=== PATIENT | male | born 2000 | race African-American/Black ===

== ENCOUNTER 2023-07-29 08:41 | Emergency (ER) | payer BC, OTHER, SELFPAY ==
[2023-07-29 08:59] VITALS: BP 127/68; PULSE 78; RESP 18; TEMP 36.5; O2SAT 100
--- NOTE | 2023-07-29 09:16 | ED.URI ---
HPI - URI/Sore Throat General Chief Complaint: Upper Respiratory Infection Stated Complaint: Covid swab Time Seen by Provider: 07/29/23 09:07 Source: patient Mode of arrival: ambulatory Limitations: no limitations History of Present Illness HPI Narrative: Patient is a pleasant 23-year-old male with no past medical history presents to the emergency department today ambulatory with a steady gait for evaluation of a 2 days of feeling under the weather . Patient states that his family members were also sick. He states that Tuesday he woke up and started to have a little bit of cough and congestion however today it was much worse. He states he has a lot of congestion, sinus headache, and feels slightly fatigued. He denies any chest pain, shortness a breath, dizziness, nausea, vomiting, diarrhea, sore throat, abdominal pain, urinary symptoms, ear pain, or ear symptoms at this current time. Denies any known exposure to COVID flu. He is however a worker in the hospital. Related Data Allergies Allergy/AdvReac Type Severity Reaction Status Date / Time No Known Allergies Allergy Verified 07/29/23 09:53 Review of Systems Review of Systems: CONSTITUTIONAL: Denies fever, chills, or sweats. EYES: Denies visual changes, redness, or discharge. ENT: rhinorrhea, congestion, sinus pressure, sinus congestion present. Denies sore throat, or otalgia. CARDIOVASCULAR: Denies chest pain, palpitations, or edema. RESPIRATORY: cough present. Denies dyspnea. GASTROINTESTINAL: Denies abdominal pain, nausea, vomiting, or diarrhea. GENITOURINARY: Denies dysuria or hematuria. SKIN: Denies rash or itching. MUSCULOSKELETAL: body aches present. Denies back pain, joint pain. NEUROLOGIC:sinus headache. denies numbness, or weakness. PSYCHIATRIC: Denies anxiety or depression. All systems reviewed & are unremarkable except as noted in HPI and below Exam Narrative: GENERAL: Well-appearing, well-nourished, and in no acute distress. HEAD: Normocephalic, atraumatic. EYES: PERRLA and EOMI. ENT: nares with mucosal erythema/congestion. sinus congestion/pressure. post-nasal drip noted. Mucous membranes moist. no tonsillar abscess or swelling. NECK: Supple. CHEST: Clear to auscultation. No respiratory distress. HEART: Regular rate and rhythm. No murmur heard. Normal peripheral pulses. ABDOMEN: Soft, nontender, nondistended, normal active bowel sounds. EXTREMITIES: Normal range of motion. No edema. SKIN: Warm, dry, no rash. NEURO: No focal deficits. Alert and oriented x3. CN II-XII grossly intact PSYCH: Normal mood and affect. Course Reevaluation(s) Reevaluation #1: patient sitting up, no distress noted. Date: 07/29/23 Time: 10:27 Vital Signs Vital signs: Vital Signs Temperature 97.7 F 07/29/23 08:59 Pulse Rate 78 07/29/23 08:59 Respiratory Rate 18 07/29/23 08:59 Blood Pressure 127/68 07/29/23 08:59 Pulse Oximetry 100 07/29/23 08:59 Oxygen Delivery Room Air 07/29/23 08:59 Temperature 97.7 F 07/29/23 08:59 Pulse Rate 78 07/29/23 08:59 Respiratory Rate 18 07/29/23 08:59 Blood Pressure 127/68 07/29/23 08:59 Pulse Oximetry 100 07/29/23 08:59 Oxygen Delivery Room Air 07/29/23 08:59 MDM - URI/Sore Throat MDM Narrative Medical decision making narrative: patient presents for value uri symptoms. Will obtain COVID/flu test. Will medicate for congestion/ headache. Patient is in no acute distress. Rapid viral testing all negative. however symptoms are still consistent with a viral URI. Discussed supportive care measures for symptoms including [id number] medications and prescriptions. Patient is nontoxic in appearance. Stable re-evaluation exam just before discharge. Patient in no acute distress. Vitals within normal limits. Discussed return precautions with the patient including all the red flag signs or symptoms of when to return the patient. The patient verbalized understanding and was a
[2023-07-29 09:48] LABS: Influenza A QL RT-PCR Negative (Negative); Influenza B QL RT-PCR Negative (Negative); RSV RNA, RT-PCR Negative (Negative); SARS-CoV-2 RNA PCR Negative (Negative)
[2023-07-29] MEDS: IBUPROFEN 600 MG TABLET PO (11:25)
[2023-07-29] MEDS: OXYMETAZOLINE HCL 0.05% NAS 15 ML BTL (*BKC) 2 SPRAY NASAL (11:26)
[2023-07-29] MEDS: guaiFENesin 12 HR 600 MG TABCR 1200 MG PO (11:30)
[2023-07-29 11:35] VITALS: BP 125/70; PULSE 80; RESP 18; O2SAT 100
== END 2023-07-29 11:31 | disposition home or self-care (01) ==
PROVIDERS: Preventive Medicine Aerospace Medicine; Emergency Provider Nurse Practitioner
DX: J06.9 Acute upper respiratory infection, unspecified (principal)
CPT/HCPCS: 87637; 99283; A9270